=== PATIENT | female | born 1950 ===

== ENCOUNTER 2024-09-16 06:25 | Day surgery (SDC) | payer OTHER ==
[2024-09-16] MEDS ORDERED: DIPHENHYDRAMINE HCL 50 MG/ML VIAL 1ML IV ONE (09:15)
[2024-09-16] MEDS ORDERED: MIDAZOLAM HCL 2 MG/2 ML VIAL IV ONE (09:15)
[2024-09-16] MEDS ORDERED: fentaNYL CITRATE 50 MCG/ML AMPUL IV PUSH ONE (09:15)
== END 2024-09-16 10:45 | disposition home or self-care (01) ==
LOC: AMB-ENDOS 06:25
PROVIDERS: ATTEND Surgery
DX: D12.0 Benign neoplasm of cecum (principal); K57.30 Diverticulosis of large intestine without perforation or abscess without bleeding